=== PATIENT | female | born 1985 | race Caucasian/White ===

== ENCOUNTER 2023-03-09 11:15 | Emergency (ER) | payer BC, SELFPAY ==
[2023-03-09 11:27] VITALS: BP 113/79; PULSE 71; RESP 16; TEMP 36.4; O2SAT 100
--- NOTE | 2023-03-09 11:44 | ED.EAR ---
HPI - Ear Problem General Chief complaint: Ear Stated complaint: Ear Infection Time Seen by Provider: 03/09/23 11:35 Source: patient and RN notes reviewed Mode of arrival: ambulatory Limitations: no limitations History of Present Illness HPI Narrative: Patient presents today complaining of 4 day history of left ear pain. She also reports some blood on her finger when she touched her ear this morning as well as muffled hearing. She currently rates her pain 5/10, which increases at night. She has tried some Cocoa without relief. She called telemedicine a few days ago and was started on amoxicillin for presumed otitis media Related Data Home Medications Medication Instructions Recorded Confirmed amoxicillin 875 mg tablet 875 mg PO DIRECTED 03/09/23 03/09/23 Allergies Allergy/AdvReac Type Severity Reaction Status Date / Time No Known Allergies Allergy Verified 03/09/23 11:35 Review of Systems Review of Systems: CONSTITUTIONAL: Denies body aches, fever, chills, or sweats. EYES: Denies visual changes, redness, or discharge. ENT: Denies rhinorrhea, congestion, sore throat. + left ear pain CARDIOVASCULAR: Denies chest pain, palpitations, or edema. RESPIRATORY: Denies cough or dyspnea. GASTROINTESTINAL: Denies abdominal pain, nausea, vomiting, or diarrhea. GENITOURINARY: Denies dysuria or hematuria. SKIN: Denies rash, itching, or wounds. MUSCULOSKELETAL: Denies back pain, joint pain, or myalgia. NEUROLOGIC: Denies headache, numbness, tingling, or weakness. PSYCH: Denies depression or anxiety. PMFSH Comments At time of signature, I have reviewed and agree with nursing past medical, surgical, social and family history unless otherwise noted. Please see nursing chart for further information. There is no relevant family history pertinent to the presenting complaint Exam Narrative: GENERAL: Well-appearing, well-nourished, and in no acute distress. HEAD: Normocephalic, atraumatic. EYES: EOMI. No redness or drainage. Conjunctivae normal. ENT: Mucous membranes pink and moist. TMs normal bilaterally. Left ear canal is mildly edematous and erythematous with thick white moist material within the ear canal. No movement tenderness, but patient does have tragal tenderness. Right ear canal and external ear normal. NECK: Normal AROM. CHEST: No respiratory distress. EXTREMITIES: Normal range of motion. No edema. SKIN: Warm, dry, no rash. Capillary refill normal. Normal skin turgor. NEURO: No focal deficits. Alert and oriented x3. Gait steady. PSYCH: Normal affect. No signs of depression or anxiety. Course Course Level of Care: Express Care Visit Vital Signs Vital signs: Vital Signs Temperature 97.6 F 03/09/23 11:27 Pulse Rate 71 03/09/23 11:27 Respiratory Rate 16 03/09/23 11:27 Blood Pressure 113/79 03/09/23 11:27 Pulse Oximetry 100 03/09/23 11:27 Temperature 97.6 F 03/09/23 11:27 Pulse Rate 71 03/09/23 11:27 Respiratory Rate 16 03/09/23 11:27 Blood Pressure 113/79 03/09/23 11:27 Pulse Oximetry 100 03/09/23 11:27 Reviewed Medical Decision Making MDM Narrative Medical decision making narrative: Patient will be treated with Ciprodex for left otitis externa. No testing indicated at this time. Anticipatory guidance given. Differential Diagnosis Differential Diagnosis: Otitis media, otitis externa, ruptured TM, serous otitis, eustachian tube dysfunction, cerumen impaction Vital Signs Vital Signs: Vital Signs Temperature 97.6 F 03/09/23 11:27 Pulse Rate 71 03/09/23 11:27 Respiratory Rate 16 03/09/23 11:27 Blood Pressure 113/79 03/09/23 11:27 Pulse Oximetry 100 03/09/23 11:27 Temperature 97.6 F 03/09/23 11:27 Pulse Rate 71 03/09/23 11:27 Respiratory Rate 16 03/09/23 11:27 Blood Pressure 113/79 03/09/23 11:27 Pulse Oximetry 100 03/09/23 11:27 Critical Care Time Critical Care Time Critical Care Time: No
== END 2023-03-09 11:50 | disposition home or self-care (01) ==
PROVIDERS: Emergency Provider Nurse Practitioner
DX: H60.502 Unspecified acute noninfective otitis externa, left ear (principal)
CPT/HCPCS: 99213; G0463